=== PATIENT | female | born 1960 | race Caucasian/White ===

== ENCOUNTER → 2023-08-02 08:58 | Outpatient (REF) | payer BC, SELFPAY | LOC: WDC 08:58 | PROVIDERS: ATTENDING PHYSICIAN Student in an Organized Health Care Education/Training Program; FAMILY PHYSICIAN Family Medicine | DX: Z12.31 Encounter for screening mammogram for malignant neoplasm of breast (principal) | CPT/HCPCS: 77063; 77067 ==

== ENCOUNTER → 2024-04-09 08:59 | Outpatient (REF) | payer BC, SELFPAY | LOC: RAD 08:59 | PROVIDERS: ATTENDING PHYSICIAN Nurse Practitioner Family | DX: R33.9 Retention of urine, unspecified (principal); R10.2 Pelvic and perineal pain | CPT/HCPCS: 76830; 76856; 76857 ==

== ENCOUNTER → 2024-04-30 06:16 | Day surgery (SDC) | payer BC, SELFPAY | LOC: GI 06:16 | PROVIDERS: ATTENDING PHYSICIAN Internal Medicine | DX: Z12.11 Encounter for screening for malignant neoplasm of colon (principal); Z80.0 Family history of malignant neoplasm of digestive organs; K64.8 Other hemorrhoids | CPT/HCPCS: G0105 ==

== ENCOUNTER → 2024-08-09 11:05 | Outpatient (REF) | payer BC, SELFPAY | LOC: WDC 11:05 | PROVIDERS: ATTENDING PHYSICIAN Obstetrics & Gynecology | DX: Z12.31 Encounter for screening mammogram for malignant neoplasm of breast (principal) | CPT/HCPCS: 77063; 77067 ==

== ENCOUNTER → 2024-11-03 12:27 | Outpatient (REF) | payer BC, SELFPAY | LOC: RAD 12:27 | PROVIDERS: ATTENDING PHYSICIAN Family Medicine | DX: R07.81 Pleurodynia (principal) | CPT/HCPCS: 71101 ==

== ENCOUNTER → 2025-04-12 14:57 | Outpatient (REF) | payer BC, SELFPAY | LOC: HWRAD 14:57 | PROVIDERS: ATTENDING PHYSICIAN Otolaryngology; FAMILY PHYSICIAN Family Medicine | DX: R59.0 Localized enlarged lymph nodes (principal); K21.9 Gastro-esophageal reflux disease without esophagitis | CPT/HCPCS: 76536 ==

== ENCOUNTER → 2025-06-13 07:23 | Outpatient (REF) | payer BC, SELFPAY | LOC: MRI 07:23 | PROVIDERS: ATTENDING PHYSICIAN Family Medicine | DX: G43.809 Other migraine, not intractable, without status migrainosus (principal); M50.30 Other cervical disc degeneration, unspecified cervical region | CPT/HCPCS: 70553; 72141; A9575 ==

== ENCOUNTER → 2025-06-20 10:04 | Outpatient (REF) | payer BC, SELFPAY | LOC: MRI 3T 10:04 | PROVIDERS: ATTENDING PHYSICIAN Family Medicine | DX: E03.9 Hypothyroidism, unspecified (principal); G43.809 Other migraine, not intractable, without status migrainosus; R59.0 Localized enlarged lymph nodes; R13.19 Other dysphagia; M50.30 Other cervical disc degeneration, unspecified cervical region; M26.609 Unspecified temporomandibular joint disorder, unspecified side | CPT/HCPCS: 70543; A9575 ==